=== PATIENT | male | born 1950 | race Caucasian/White ===

== ENCOUNTER 2020-03-07 13:50 | Inpatient (IN) | payer MEDICARE, OTHER ==
[~2020-03-07] VITALS: Ht 190.5 cm; Wt 177.7 kg
[2020-03-07] MEDS ORDERED: DILTIAZEM HCL90 MG PO (14:14)
[2020-03-07] MEDS ORDERED: ELIQUIS5 MG PO (14:14)
[2020-03-07] MEDS ORDERED: FUROSEMIDE40 MG PO (14:15)
[2020-03-07] MEDS ORDERED: FUROSEMIDE80 MG PO (14:15)
[2020-03-07] MEDS ORDERED: K-TAB ER20 MEQ PO (14:15)
[2020-03-07] MEDS ORDERED: LEVOTHYROXINE75 MC1 PO (14:15)
--- NOTE | 2020-03-07 17:36 | EKG ---
[facility] [address] [place] [address] Signed Sinus tachycardia with 1st degree AV block Right bundle branch block T wave abnormality, consider inferior ischemia Abnormal ECG No previous ECGs available Confirmed by CONSTANTIN FARIA MD ([id number] on 03/07/2020 5:36:00 PM Electronically Signed By: CONSTANTIN FARIA MD 03/07/20 1736 PATIENT NAME: KATHRYN BARTLETT Electrocardiogram DATE OF : 48 PHYSICIAN: CONSTANTIN FARIA MD REPORT #: [id number] REPORT IS CONFIDENTIAL AND NOT TO BE RELEASED WITHOUT AUTHORIZATION
[2020-03-08] MEDS ORDERED: VITAMIN D325 MCG PO (15:02)
[2020-03-08] MEDS ORDERED: ZINC SULFATE220 M1 PO (15:05)
== END 2020-03-09 12:00 | disposition short-term general hospital (02) | DRG 292 ==
LOC: ED 13:50 → CCU 20:06
PROVIDERS: ADMIT Internal Medicine; ATTEND Internal Medicine
DX: I50.33 Acute on chronic diastolic (congestive) heart failure (principal); E66.2 Morbid (severe) obesity with alveolar hypoventilation; J96.11 Chronic respiratory failure with hypoxia; Z68.42 Body mass index [BMI] 45.0-49.9, adult; Z20.822 Contact with and (suspected) exposure to COVID-19; I50.82 Biventricular heart failure; K76.1 Chronic passive congestion of liver; I48.0 Paroxysmal atrial fibrillation; E03.9 Hypothyroidism, unspecified; E80.6 Other disorders of bilirubin metabolism; Z79.899 Other long term (current) drug therapy; Z79.01 Long term (current) use of anticoagulants; Z91.041 Radiographic dye allergy status
CPT/HCPCS: 36415; 71045; 80048; 80053; 80069; 80076; 81001; 82803; 83735; 83880; 84484; 85025; 93005; 93010; 93306; 96374; 99285-25; C9803; J1940; J3490; Q9957; U0003